=== PATIENT | female | born 1935 | race Caucasian/White ===

== ENCOUNTER 2021-07-28 17:49 | Inpatient (IN) | payer MEDICARE ==
[2021-07-28] MEDS ORDERED: ACETAMINOPHEN TAB 325 MG TAB PO PRN ×2 (18:51→22:42)
[2021-07-28] MEDS ORDERED: DEXAMETHASONE SOD PHOSPHATE 10 MG/ML 1 ML VIAL IV STA (18:52)
[2021-07-28 19:22] LABS: Basophils # (A) 0.1 k/uL (0-0.2); Basophils % (A) 1 %; Eosinophils # (A) 0.2 k/uL (0-0.7); Eosinophils % (A) 2 %; HCT 42.1 % (34.0-46.0); HGB 13.4 gm/dL (11.4-16.0); Lymphocytes # (A) 1.5 k/uL (1.0-4.8); Lymphocytes % (A) 21 %; MCH 29.5 pg (25.0-35.0); MCHC 31.9 g/dL (31.0-37.0); MCV 92.3 fL (80.0-100.0); Monocytes # (A) 0.8 k/uL (0-1.0); Monocytes % (A) 11 %; Neutrophils # (A) 4.5 k/uL (1.3-7.7); Neutrophils % (A) 63 %; Platelet Count 268 k/uL (150-450); RBC 4.56 m/uL (3.80-5.40); RDW 13.3 % (11.5-15.5); WBC 7.1 k/uL (3.8-10.6)
[2021-07-28 19:35] LABS: Partial Thromboplastin Time 26.6 sec (22.0-30.0); Prothrombin Time 11.1 sec (9.0-12.0)
[2021-07-28 19:36] LABS: ALT 15 U/L (4-34); AST 32 U/L (14-36); African American GFR (CKD) >90 (>60 ml/min/1.73 sqM); Albumin 3.2 g/dL (3.5-5.0); Alkaline Phosphatase 92 U/L (38-126); Anion Gap 6 mmol/L; Blood Urea Nitrogen 20 mg/dL (7-17); C Reactive Protein 3.3 mg/dL (<1.0); Calcium 8.8 mg/dL (8.4-10.2); Carbon Dioxide 27 mmol/L (22-30); Chloride 98 mmol/L (98-107); Glucose 107 mg/dL (74-99); LDH 449 U/L (313-618); Magnesium 1.8 mg/dL (1.6-2.3); Non-African American GFR(CKD) 81 (>60 ml/min/1.73 sqM); Potassium 4.3 mmol/L (3.5-5.1); Sodium 131 mmol/L (137-145); Total Bilirubin 0.4 mg/dL (0.2-1.3); Total Protein 6.1 g/dL (6.3-8.2)
--- NOTE | 2021-07-28 19:41 | XR ---
EXAMINATION TYPE: XR chest 1V portable DATE OF EXAM: 07/28/2021 COMPARISON: NONE HISTORY: Shortness of breath TECHNIQUE: Single frontal view of the chest is obtained. FINDINGS: Hyperinflation suggests COPD. There is no evidence of pneumothorax. Minimal left-sided ple ural thickening or effusion. Biapical pleural thickening. Nodularity in the right lung with the large st nodule measuring 8 mm. Slightly coarsened interstitium. Diffuse osteopenia. IMPRESSION: COPD with 8 mm right upper lobe pulmonary nodule. 2. Slightly coarsened interstitium may represent chronic interstitial lung disease. Could not exclude an interstitial pneumonitis.
--- NOTE | 2021-07-28 20:27 | CT ---
EXAMINATION TYPE: CT chest angio for PE DATE OF EXAM: 07/28/2021 COMPARISON: None HISTORY: ELEVATED D-DIMER, COVID POSITIVE CT DLP: 286.2 mGycm Automated exposure control for dose reduction was used. CONTRAST: CT Chest for pulmonary embolism performed with with IV Contrast, patient injected with 100 mL of Isov ue 370. FINDINGS: LUNGS: Biapical pleural thickening. Bilateral pleural-based thickening. Motion artifact limits the ex am. 3 mm nodule right upper lobe posteriorly image 50. Subpleural 2 mm nodule left upper lobe additio nal areas of subpleural nodularity seen bilaterally subsegmental areas of consolidation are noted lar lyndsey nodule seen in the superior segment right lower lobe measuring 1 cm with adjacent 6 mm nodule. Ad ditional old micronodular pattern seen in the anterior segments of bilateral upper lobes. Underlying COPD noted. No pleural effusion or pneumothorax. Additional multiple 5 mm less pulmonary nodules note d. MEDIASTINUM: Aorta of normal caliber. Coronary artery calcification noted. Central pulmonary arteries enhance normally. Within a right upper lobe branch on axial image #62, 61 and 60 there is a nonenhan cing segment of the right upper lobe pulmonary artery suspicious for a small pulmonary embolism. Smal l pericardial effusion noted. OTHER: The level degenerative disc disease with a severe compression fracture lower thoracic spine r esulting in approximate 10% retropulsion. Moderate-sized hiatal hernia. IMPRESSION: 1. There is a nonenhancing right upper lobe pulmonary artery distal branch segment suspicious for sma ll pulmonary embolism. 2. COPD with multiple pulmonary nodules recommend short-term follow-up PET scan. 3. Chronic appearing severe compression fracture lower thoracic spine with approximately 10% retropul shreyas. Short-term follow-up MRI could be obtained.
--- NOTE | 2021-07-28 20:29 | XR ---
EXAMINATION TYPE: XR ankle complete LT DATE OF EXAM: 07/28/2021 COMPARISON: NONE HISTORY: Pain FINDINGS: Three views of the ankle demonstrate the ankle mortise to be intact and symmetric. The joint spaces are preserved. The osseous structures are intact. Views osteopenia with diffuse subcutaneous edema. No definite destructive changes. IMPRESSION: 1. Soft tissue edema with possible ulceration adjacent calcaneus. No definite destructive changes..
--- NOTE | 2021-07-28 20:30 | XR ---
EXAMINATION TYPE: XR foot complete LT DATE OF EXAM: 07/28/2021 COMPARISON: NONE HISTORY: Soft tissue edema and alternatives TECHNIQUE: Three views are submitted. FINDINGS: The osseous structures are intact. There is no acute fracture or dislocation. Diffuse osteopenia. Hammertoe deformities and arthropathy of the DIP joints of all digits. Soft tissue edema and ulcerati on adjacent to the calcaneus posteriorly. No definite destructive changes. IMPRESSION: 1. Soft tissue swelling and subcutaneous ulceration adjacent to the calcaneus with no diagnostic evid ence of osteomyelitis.
[2021-07-28] MEDS ORDERED: cefTRIAXone IN SWFI 1,000 MG/10 ML SYRINGE IVP STA (20:47)
--- NOTE | 2021-07-28 22:27 | ED ---
General Adult HPI - General Chief complaint: Shortness of Breath Stated complaint: Covid+ Time Seen by Provider: 07/28/21 18:16 Source: patient, EMS, RN notes reviewed, old records reviewed Mode of arrival: EMS - History of Present Illness Initial comments: She was evaluated when she was placed in the room. Patient is an 86-year-old female with past medical history remarkable for asthma, dementia, anemia, left heel pressure ulcer, recent right artificial hip joint surgery. Patient is also currently being treated for a DVT per daughter on Alexsander who presents to the emergency department after being brought in by EMS after being found to be Covid positive and concern for worsening infection. Patient is a limited historian secondary to her chronic dementia, which she is at baseline per EMS. Baseline she is alert and oriented times one to 2. She is complaining of a cough, but denies any chest pain, abdominal pain. She endorses mild shortness of breath. She is not on oxygen at the nursing facility. She is endorsing left heel pain at the site of her ulcer. She denies any nausea or vomiting or abdominal pain. She has no other acute complaints at this time. Per patient's daughter, she was fully vaccinated for COVID-19. - Related Data Home Medications Medication Instructions Recorded Confirmed Acetaminophen [Tylenol] 650 mg PO Q4H PRN 07/28/21 07/28/21 Albuterol Nebulized [Ventolin 2.5 mg INHALATION RT-Q4H PRN 07/28/21 07/28/21 Nebulized] Albuterol Sulfate [Ventolin HFA] 2 puff INHALATION RT-Q8H PRN 07/28/21 07/28/21 Apixaban [Eliquis] 10 mg PO BID 07/28/21 07/28/21 Sennosides [Senna] 8.6 mg PO BID 07/28/21 07/28/21 Allergies Allergy/AdvReac Type Severity Reaction Status Date / Time No Known Allergies Allergy Verified 07/28/21 22:06 Review of Systems ROS Statement: Those systems with pertinent positive or pertinent negative responses have been documented in the HPI. Review of Systems: CONST: Denies fever EYES: Denies blurry vision ENT: Denies nasal congestion C/V: Denies Chest pain RESP: Endorses cough, shortness of breath GI: Denies abdominal pain : Denies dysuria SKIN: Denies rash. MSK: Denies joint pain. NEURO: Denies headache ROS Other: All systems not noted in ROS Statement are negative. Past Medical History Past Medical History: Asthma Additional Past Medical History / Comment(s): Anemia, constipation, Fracture left talus, Right leg PE, dementia History of Any Multi-Drug Resistant Organisms: None Reported Past Surgical History: Unable to Obtain Past Psychological History: Unable to Obtain Past Alcohol Use History: Unable to Obtain Past Drug Use History: Unable to Obtain General Exam - General Exam Comments Initial Comments: General: Appears in no acute distress. HEAD: Normal with no signs of head trauma. EYES: PERRLA, EOMI, conjunctiva normal, no discharge. ENT: Hearing grossly intact, normal oropharynx. RESPIRATORY: Crackles in bilateral lung bases without any obvious wheezes. Minimal increased work of breathing if any. Patient is hypoxic on room air, occasionally saturating 88-90%. C/V: Portable and tachycardic with regular rhythm. S1 and S2 auscultated. No peripheral edema. Peripheral pulses are 2+ intact throughout. ABD: Abd is soft, nontender, nondistended EXT: Pulses are located over the left heel. No obvious deformity. SKIN: Patient has approximate stage I to 2 decubitus ulcer located over the left heel. There is surrounding erythema concerning for cellulitis. Minimal possible purulent discharge at this time. NEURO: History of dementia. Alert and oriented times one to 2. No focal sensory strength deficits appreciated. Course Vital Signs 07/28/21 07/28/21 07/28/21 17:50 19:30 21:00 Temperature 98.2 F Pulse Rate 102 H 95 Respiratory 22 30 H 18 Rate Blood Pressure 134/70 137/80 O2 Sat by Pulse 95 95 Oximetry Medical Decision Making - Medical Decision Making Based on the patient's presentation and physical exam, I am concerned for hypoxic respiratory failure secondary to COVID-19 infection. She was placed on 2 L nasal cannula is no longer hypoxic. We will obtain COVID-19 laboratory studies as well as a cardiac workup. Due to her left heel acute this ulcer, we will obtain wound cultures as well as blood cultures and lactate. X-rays of left he'll also be obtained. Patient was in agreement this plan. She'll be symptomatically treated with Tylenol for fevers, albuterol inhaler, as well as IV Decadron. She will be placed on Rocephin over concern for cellulitis surrounding the due to his ulcer on the left heel. Patient and her daughter were in agreement this plan. EKG shows mild sinus tachycardia and chest x-ray revealed a pulmonary nodule in the right upper lobe as well as chronic lung disease. Ankle x-ray and foot x- ray showed no signs of acute osteomyelitis. Laboratory studies were remarkable for an elevated d-dimer of 0.96. She is mildly hyponatremic to 131. Troponin is negative. Covid is positive. Flu and RSV are negative. CRP is mildly elevated at 3.3. Due to the elevated d-dimer, despite the patient being on alcohol is for a DVT at this time, we will obtain a CT angiogram of the possibility of pulmonary embolism. Patient was in agreement this plan. Patient's CT angiogram revealed a possible small subsegmental PE in the right upper lobe. There are multiple pulmonary nodules present. There is also a compression fracture located in the thoracic spine which is chronic. I spoke with the patient's daughter regarding the findings. She will be admitt ed to the hospital for further monitoring. Patient's daughter was in agreement this plan.After multiple attempts to contact the patient's admitting doctor per the admissions grid, Dr. Padilla, we waited an hour and a half. Therefore patient will be admitted under sounds physician, Dr. Rojo. I spoke with Dr. Sandra over the phone who was in agreement that admission. I will consult Dr. Philippe of pulmonology and Dr. Arroyo of ID to evaluate the patient in the morning. Patient was therefore admitted to the hospital to a telemetry bed in serious condition. - Lab Data Result diagrams: 07/28/21 19:18 07/28/21 19:18 Lab Results 07/28/21 07/28/21 07/28/21 Range/Units 19:18 19:18 19:18 WBC 7.1 (3.8-10.6) k/uL RBC 4.56 (3.80-5.40) m/uL Hgb 13.4 (11.4-16.0) gm/dL Hct 42.1 (34.0-46.0) % MCV 92.3 (80.0-100.0) fL MCH 29.5 (25.0-35.0) pg MCHC 31.9 (31.0-37.0) g/dL RDW 13.3 (11.5-15.5) % Plt Count 268 (150-450) k/uL MPV 8.0 Neutrophils % 63 % Lymphocytes % 21 % Monocytes % 11 % Eosinophils % 2 % Basophils % 1 % Neutrophils # 4.5 (1.3-7.7) k/uL Lymphocytes # 1.5 (1.0-4.8) k/uL Monocytes # 0.8 (0-1.0) k/uL Eosinophils # 0.2 (0-0.7) k/uL Basophils # 0.1 (0-0.2) k/uL PT 11.1 (9.0-12.0) sec INR 1.0 (<1.2) APTT 26.6 (22.0-30.0) sec D-Dimer 0.96 H (<0.60) mg/L FEU Sodium 131 L (137-145) mmol/L Potassium 4.3 (3.5-5.1) mmol/L Chloride 98 (98-107) mmol/L Carbon Dioxide 27 (22-30) mmol/L Anion Gap 6 mmol/L BUN 20 H (7-17) mg/dL Creatinine 0.67 (0.52-1.04) mg/dL Est GFR (CKD-EPI)AfAm >90 (>60 ml/min/1.73 sqM) Est GFR (CKD-EPI)NonAf 81 (>60 ml/min/1.73 sqM) Glucose 107 H (74-99) mg/dL Plasma Lactic Acid Willie (0.7-2.0) mmol/L Calcium 8.8 (8.4-10.2) mg/dL Magnesium 1.8 (1.6-2.3) mg/dL Total Bilirubin 0.4 (0.2-1.3) mg/dL AST 32 (14-36) U/L ALT 15 (4-34) U/L Alkaline Phosphatase 92 (38-126) U/L Lactate Dehydrogenase 449 (313-618) U/L Troponin I (0.000-0.034) ng/mL C-Reactive Protein 3.3 H (<1.0) mg/dL Total Protein 6.1 L (6.3-8.2) g/dL Albumin 3.2 L (3.5-5.0) g/dL Influenza Type A (PCR) (Not Detectd) Influenza Type B (PCR) (Not Detectd) RSV (PCR) (Not Detectd) SARS-CoV-2 (PCR) (Not Detectd) 07/28/21 07/28/21 07/28/21 Range/Units 19:18 19:18 19:18 WBC (3.8-10.6) k/uL RBC (3.80-5.40) m/uL Hgb (11.4-16.0) gm/dL Hct (34.0-46.0) % MCV (80.0-100.0) fL MCH (25.0-35.0) pg MCHC (31.0-37.0) g/dL RDW (11.5-15.5) % Plt Count (150-450) k/uL MPV Neutrophils % % Lymphocytes % % Monocytes % % Eosinophils % % Basophils % % Neutrophils # (1.3-7.7) k/uL Lymphocytes # (1.0-4.8) k/uL Monocytes # (0-1.0) k/uL Eosinophils # (0-0.7) k/uL Basophils # (0-0.2) k/uL PT (9.0-12.0) sec INR (<1.2) APTT (22.0-30.0) sec D-Dimer (<0.60) mg/L FEU Sodium (137-145) mmol/L Potassium (3.5-5.1) mmol/L Chloride (98-107) mmol/L Carbon Dioxide (22-30) mmol/L Anion Gap mmol/L BUN (7-17) mg/dL Creatinine (0.52-1.04) mg/dL Est GFR (CKD-EPI)AfAm (>60 ml/min/1.73 sqM) Est GFR (CKD-EPI)NonAf (>60 ml/min/1.73 sqM) Glucose (74-99) mg/dL Plasma Lactic Acid Willie 0.9 (0.7-2.0) mmol/L Calcium (8.4-10.2) mg/dL Magnesium (1.6-2.3) mg/dL Total Bilirubin (0.2-1.3) mg/dL AST (14-36) U/L ALT (4-34) U/L Alkaline Phosphatase (38-126) U/L Lactate Dehydrogenase (313-618) U/L Troponin I <0.012 (0.000-0.034) ng/mL C-Reactive Protein (<1.0) mg/dL Total Protein (6.3-8.2) g/dL Albumin (3.5-5.0) g/dL Influenza Type A (PCR) Not Detected (Not Detectd) Influenza Type B (PCR) Not Detected (Not Detectd) RSV (PCR) Not Detected (Not Detectd) SARS-CoV-2 (PCR) Detected A (Not Detectd) - EKG Data -: EKG Interpreted by Me EKG Comments: 12-lead Electrocardiogram Interpretation Note EKG was reviewed and interpreted by myself. 12-lead ECG performed at 1822 is interpreted by me as revealing sinus tachycardia at a rate of125 beats per minute according to the machine, however I do believe it is double counting the T waves which are somewhat incised QRS complexes, and it appears to be more proximally 100 bpm.. Left axis deviation. [place] interval is 120 ms, QRS duration 74 ms, QTc is 470 ms.. There were no ST or T wave abnormalities to suggest myocardial ischemia or injury. R wave progression across the precordium was satisfactory. By my interpretation this EKG is non-diagnostic for acute ischemia. Disposition Clinical Impression: Pneumonia due to COVID-19 virus, Pulmonary nodules, Single subsegmental pulmonary embolism without acute cor pulmonale, Foot ulcer, Cellulitis, History of dementia Disposition: ADMITTED IP TO THIS HOSP Condition: Serious Referrals: Jose Montalvo DO [Primary Care Provider] - 1-2 days
[2021-07-28] MEDS ORDERED: ONDANSETRON 4 MG/2 ML VIAL IVP PRN (22:48)
--- NOTE | 2021-07-29 02:07 | P.HPIM ---
History of Present Illness H&P Date: 07/28/21 Chief Complaint: positive covid at senior care facility 86 year old female with advanced dementia, asthma, left heel pressure ulcer patient is a senior care resident , vaccinated against covid, sheis unable to provide any meaningful history due to dementia. history was provided by daughter in the ED, she reports that her mom was sent here due to concerns regarding posi tive covid infection, she has been having some cough, and shortness of breath, she is not on home oxygen. patient was recently diagnosed with DVT and currently on eliquis CTA inthe ED showed right upper lobe possible small PE, COPD changes with pulmonary nodules , and chronic compression fracture of lower thoracic vertebra blood work unremarkable , slightly elevated d-dimer COVID positive Review of Systems ROS unobtainable: due to mental status Past Medical History Past Medical History: Asthma Additional Past Medical History / Comment(s): Anemia, constipation, Fracture left talus, Right leg DVT, dementia History of Any Multi-Drug Resistant Organisms: None Reported Past Surgical History: Unable to Obtain Past Anesthesia/Blood Transfusion Reactions: No Reported Reaction Past Psychological History: Unable to Obtain Smoking Status: Never smoker Past Alcohol Use History: Unable to Obtain Past Drug Use History: Unable to Obtain - Past Family History family Family Medical History: Unable to Obtain Medications and Allergies Home Medications Medication Instructions Recorded Confirmed Type Acetaminophen [Tylenol] 650 mg PO Q4H PRN 07/28/21 07/28/21 History Albuterol Nebulized [Ventolin 2.5 mg INHALATION RT-Q4H PRN 07/28/21 07/28/21 History Nebulized] Albuterol Sulfate [Ventolin HFA] 2 puff INHALATION RT-Q8H PRN 07/28/21 07/28/21 History Apixaban [Eliquis] 10 mg PO BID 07/28/21 07/28/21 History Sennosides [Senna] 8.6 mg PO BID 07/28/21 07/28/21 History Allergies Allergy/AdvReac Type Severity Reaction Status Date / Time No Known Allergies Allergy Verified 07/28/21 22:06 Physical Exam Vitals: Vital Signs Temp Pulse Pulse Resp BP BP Pulse Ox 07/29/21 00:44 98.5 F 95 18 150/75 94 L 07/28/21 23:39 95 18 139/89 98 07/28/21 21:00 95 18 137/80 95 07/28/21 19:30 30 H 07/28/21 17:50 98.2 F 102 H 22 134/70 95 Intake and Output 07/28/21 07/28/21 07/29/21 14:59 22:59 06:59 Other: Voiding Method Diaper Weight 68.039 kg 68.039 kg Constitutional: No acute distress, laying comfortably in bed, does not follow commands, but alert and awake , does not answer questions Eyes: Anicteric sclerae, moist conjunctiva, Pupils equal round reactive to light ENMT: NC/AT Neck: Supple, no masses, or JVD No carotid bruits No thyromegaly Lungs: Clear to auscultation with harsh vesicular breathing Clear to percussion Normal respiratory effort, no accessory muscle use Cardiovascular: Heart regular in rate and rhythm, No murmurs, gallops, or rubs No peripheral edema Abdominal: Soft Nontender, no guarding, rebound or rigidity Abdomen moving with respiration Normoactive bowel sounds No hepatomegaly, No splenomegaly No palpable mass No abdominal wall hernia noted Skin: Normal temperature, tone, texture, turgor No induration No subcutaneous nodules No rash, lesions left heal ulcer Extremities: No digital cyanosis No clubbing Pedal pulses intact and symmetrical Radial pulses intact and symmetrical No calf tenderness Psychiatric: Alert and does not answer any of my questions Neuro did not follow commands, but makes brief eye contact, she is looking around and not following commands but is moving purposefully Lymphatics: no palpable cervical or supraclavicular , or inguinal lymph nodes Results CBC & Chem 7: 07/28/21 19:18 07/28/21 19:18 Labs: Abnormal Lab Results - Last 24 Hours (Table) 07/28/21 07/28/21 07/28/21 Range/Units 19:18 19:18 19:18 D-Dimer 0.96 H (<0.60) mg/L FEU Sodium 131 L (137-145) mmol/L BUN 20 H (7-17) mg/dL Glucose 107 H (74-99) mg/dL C-Reactive Protein 3.3 H (<1.0) mg/dL Total Protein 6.1 L (6.3-8.2) g/dL Albumin 3.2 L (3.5-5.0) g/dL SARS-CoV-2 (PCR) Detected A (Not Detectd) Thrombosis Risk Factor Assmnt - Choose All That Apply Each Factor Represents 1 point: Serious lung disease incl. pneumonia (< 1month) Each Risk Factor Represents 3 Points: Age 75 years or older Thrombosis Risk Factor Assessment Total Risk Factor Score: 4 Thrombosis Risk Factor Assessment Level: Moderate Risk Assessment and Plan Assessment: acute covid pneumonitis Asthma compensated supportive care breathing treatments as needed patient was started on steroids in the ED, unclear if she was hypoxic or no, currently on 2 L NC with oxygen sat 94% symptomatic control of fever, pain , cough patient vaccinated against covid check trops, d dimer, CRP, LDH , ferritin , procalcitonin for prognostic evaluation recent diagnosis of DVT , on eliquis incidental finding of small PE right upper lobe artery , continue with eliquis for now left heel ulcer , on rocephine follow up cultures incidental findings of pulmonary nodule pulmonary consult and OP follow up Its unclear when she was diagnosed with DVT, but currently she is still on Eliquis 10mg BID , which should only be used the first week. need to verify with family when this was started to adjust dosing full code DVT PPX, patient currently on full dose eliquis for recent diagnosis of DVT anticipated length of stay > 2 midnights
[2021-07-29 06:50] LABS: Glucose,Whole Blood 132 mg/dL (75-99)
[2021-07-29] MEDS: INSULIN ASPART (NovoLOG) 100 UNIT/ML VIAL SQ SCH ×4 (06:53→20:25)
[2021-07-29] MEDS: ALBUTEROL HFA INHALER INHALATION PRN ×2 (07:41→11:33)
[2021-07-29 07:44] LABS: Basophils % (A) 0 %; Eosinophils % (A) 0 %; HCT 43.3 % (34.0-46.0); HGB 13.6 gm/dL (11.4-16.0); Lymphocytes # (A) 0.8 k/uL (1.0-4.8); Lymphocytes % (A) 23 %; MCH 29.6 pg (25.0-35.0); MCHC 31.5 g/dL (31.0-37.0); Mean Platelet Volume 7.8; Monocytes # (A) 0.1 k/uL (0-1.0); Monocytes % (A) 4 %; Neutrophils # (A) 2.3 k/uL (1.3-7.7); Neutrophils % (A) 72 %; Platelet Count 258 k/uL (150-450); RBC 4.61 m/uL (3.80-5.40); RDW 13.4 % (11.5-15.5); WBC 3.2 k/uL (3.8-10.6)
[2021-07-29 08:01] LABS: Prothrombin Time 10.5 sec (9.0-12.0)
[2021-07-29 08:11] LABS: ALT 15 U/L (4-34); AST 26 U/L (14-36); African American GFR (CKD) >90 (>60 ml/min/1.73 sqM); Alkaline Phosphatase 79 U/L (38-126); Anion Gap 6 mmol/L; Blood Urea Nitrogen 17 mg/dL (7-17); Calcium 9.2 mg/dL (8.4-10.2); Carbon Dioxide 29 mmol/L (22-30); Chloride 102 mmol/L (98-107); Glucose 139 mg/dL (74-99); LDH 426 U/L (313-618); Non-African American GFR(CKD) 80 (>60 ml/min/1.73 sqM); Potassium 4.7 mmol/L (3.5-5.1); Sodium 137 mmol/L (137-145); Total Bilirubin 0.3 mg/dL (0.2-1.3)
[2021-07-29] MEDS ORDERED: DEXAMETHASONE SOD PHOSPHATE 10 MG/ML 1 ML VIAL IV SCH (09:00)
[2021-07-29 09:17] LABS: C Reactive Protein 3.6 mg/dL (<1.0)
[2021-07-29] MEDS: APIXABAN 5 MG TAB PO SCH ×2 (09:35→20:23)
[2021-07-29] MEDS: SENNOSIDES 8.6 MG TAB PO SCH ×3 (09:36→20:25)
[2021-07-29 11:43] LABS: Glucose,Whole Blood 142 mg/dL (75-99)
--- NOTE | 2021-07-29 12:43 | P.CNPUL ---
History of Present Illness Consult date: 07/29/21 Requesting physician: Vitaly Rojo Reason for consult: dyspnea, hypoxemia Chief complaint: CoVID positive History of present illness: This is an 86-year-old female patient who follows with Dr. Montalvo as her primary care provider. She resides in a local extended care facility and was found to be CoVID positive yesterday. She has been fully vaccinated. Not normally on oxygen. She was brought in due to her positive testing concerns regarding worsening infection. She does have chronic dementia is a poor historian. Chest is a history of asthma, anemia, left heel pressure ulcer, recent hip surgery. Her recent DVT. Anticoagulated with Eliquis Chest x-ray reveals evidence of COPD with some chronic interstitial lung disease possible. 8 mm right upper lobe pulmonary nodule. CT angiogram reveals a distal subsegmental suspicious small PE. There is evidence of COPD with multiple pu lmonary nodules. Chronic-appearing severe compression fraction of the lower thoracic spine. X-ray of the left heel reveals soft tissue swelling and subcutaneous ulceration adjacent to the calcaneus no evidence of osteomyelitis. White count 3.2. Hemoglobin 13.6. Lymphocytes 0.8. D-dimer 0.98. Sodium 137. Potassium 4.7. Creatinine 0.69. Glucose 139. COVID-19 screen by PCR positive. Influenza screen negative. She's been initiated on ceftriaxone. Anticoagulated with Eliquis. Review of Systems ROS unobtainable: due to mental status Past Medical History Past Medical History: Asthma Additional Past Medical History / Comment(s): Anemia, constipation, Fracture left talus, Right leg DVT, dementia History of Any Multi-Drug Resistant Organisms: None Reported Past Surgical History: Unable to Obtain Past Anesthesia/Blood Transfusion Reactions: No Reported Reaction Past Psychological History: Unable to Obtain Smoking Status: Never smoker Past Alcohol Use History: Unable to Obtain Past Drug Use History: Unable to Obtain - Past Family History family Family Medical History: Unable to Obtain Additional Family Medical History / Comment(s): Unable to obtain any family history due to the patient's altered mental status, dementia. No family members present. Medications and Allergies Home Medications Medication Instructions Recorded Confirmed Type Acetaminophen [Tylenol] 650 mg PO Q4H PRN 07/28/21 07/28/21 History Albuterol Nebulized [Ventolin 2.5 mg INHALATION RT-Q4H PRN 07/28/21 07/28/21 History Nebulized] Albuterol Sulfate [Ventolin HFA] 2 puff INHALATION RT-Q8H PRN 07/28/21 07/28/21 History Apixaban [Eliquis] 10 mg PO BID 07/28/21 07/28/21 History Sennosides [Senna] 8.6 mg PO BID 07/28/21 07/28/21 History Allergies Allergy/AdvReac Type Severity Reaction Status Date / Time No Known Allergies Allergy Verified 07/28/21 22:06 Physical Exam Vitals: Vital Signs Temp Pulse Pulse Resp BP BP Pulse Ox 07/29/21 12:00 98.2 F 89 20 133/72 92 L 07/29/21 08:00 99.1 F 96 18 119/62 94 L 07/29/21 07:45 98 07/29/21 04:00 80 20 123/74 98 07/29/21 00:44 98.5 F 95 18 150/75 94 L 07/28/21 23:39 95 18 139/89 98 07/28/21 21:00 95 18 137/80 95 07/28/21 19:30 30 H 07/28/21 17:50 98.2 F 102 H 22 134/70 95 Intake and Output 07/28/21 07/29/21 07/29/21 22:59 06:59 14:59 Intake Total 0 Balance 0 Intake: Oral 0 Other: Voiding Method Diaper External Catheter # Voids 1 Weight 68.039 kg 67.5 kg 67.5 kg GENERAL EXAM: Alert, 86-year-old female patient, on 3 L nasal cannula, comfortable in no apparent distress. HEAD: Normocephalic. EYES: Normal reaction of pupils, equal size. NOSE: Clear with pink turbinates. THROAT: No erythema or exudates. NECK: No masses, no JVD. CHEST: No chest wall deformity. LUNGS: Equal air entry with coarse crackles in the posterior bases. CVS: S1 and S2 normal with no audible murmur, regular rhythm. ABDOMEN: No hepatosplenomegaly, normal bowel sounds, no guarding or rigidity. SPINE: No scoliosis or deformity SKIN: No rashes CENTRAL NERVOUS SYSTEM: Unable to fully evaluate the patient due to dementia, tone is normal in all 4 extremities. EXTREMITIES: There is no peripheral edema. No clubbing, no cyanosis. Peripheral pulses are intact. Results - Laboratory Findings CBC and BMP: 07/29/21 07:22 07/29/21 07:22 PT/INR, D-dimer PT 10.5 sec (9.0-12.0) 07/29/21 07:22 INR 1.0 (<1.2) 07/29/21 07:22 D-Dimer 0.98 mg/L FEU (<0.60) H 07/29/21 07:22 Abnormal lab findings: Abnormal Labs 07/28/21 07/28/21 07/28/21 19:18 19:18 19:18 WBC Lymphocytes # D-Dimer 0.96 H Sodium 131 L BUN 20 H Glucose 107 H POC Glucose (mg/dL) C-Reactive Protein 3.3 H Total Protein 6.1 L Albumin 3.2 L SARS-CoV-2 (PCR) Detected A 07/29/21 07/29/21 07/29/21 06:48 07:22 07:22 WBC 3.2 L Lymphocytes # 0.8 L D-Dimer 0.98 H Sodium BUN Glucose POC Glucose (mg/dL) 132 H C-Reactive Protein Total Protein Albumin SARS-CoV-2 (PCR) 07/29/21 07/29/21 07:22 11:41 WBC Lymphocytes # D-Dimer Sodium BUN Glucose 139 H POC Glucose (mg/dL) 142 H C-Reactive Protein 3.6 H Total Protein 6.0 L Albumin 3.0 L SARS-CoV-2 (PCR) - Diagnostic Findings Chest x-ray: image reviewed CT scan - chest: image reviewed Assessment and Plan Assessment: 1 Acute hypoxemic respiratory failure secondary to acute COVID-19 pneumonia the patient apparently is fully vaccinated. Resides in an [facility]. 2 Recent history of DVT, on Eliquis in the outpatient setting. Possible small PE on CTA 3 Left heel ulcer on Rocephin 4 Dementia, very poor historian 5 History of recent hip surgery 6 Asthma 7 History of anemia Plan: The patient was seen and evaluated by Dr. Philippe Chest x-ray, CAT scan and labs reviewed We will initiate Decadron, vitamin supplements,bronchodilators Continue Eliquis Titrate the FiO2 as tolerated We will continue to follow and make further recommendations based on her clinica l status I, the cosigning physician, performed a history & physical examination of the patient. Lungs sounds with bibasilar crackles. Maintaining good O2 saturations in the 90s on 3 L/m per nasal cannula. I discussed the assessment and plan of care with my nurse practitioner, Gabi Coronel. I attest to the above consultation as dictated by her. Time with Patient: Greater than 30
[2021-07-29] MEDS: CHOLECALCIFEROL 25 MCG (1000 IU) TABLET PO SCH (14:21)
[2021-07-29] MEDS: ASCORBIC ACID 500 MG TAB PO SCH ×2 (14:21→20:23)
--- NOTE | 2021-07-29 14:24 | P.PN ---
Progress Note - Text Progress Note Date: 07/29/21 Presenting complaint: Cough short of breath Interval history: 86-year-old patient of Dr. Montalvo. At the baseline able to feed herself. Dementia. Able tonsil simple questions. Normally uses a wheelchair[facility] Ad[facility] with COVID 19 pneumonitis, possible hypoxia. 07/29/2021: Reclining in bed. Congested cough. Some shortness of breath. Decreased appetite. Review of systems: Was done for constitutional, cardiovascular, GI, pulmonary. relevant finding as above Active Medications Acetaminophen (Acetaminophen Tab 325 Mg Tab) 650 mg PO Q4H PRN PRN Reason: Pain or Fever > 100.5 Albuterol Sulfate (Albuterol Hfa Inhaler) 2 puff INHALATION RT-Q6H PRN PRN Reason: Shortness Of Breath Or Wheezing Last Admin: 07/29/21 11:33 Dose: 2 puff Documented by: Apixaban (Apixaban 5 Mg Tab) 10 mg PO BID [facility]; Protocol Last Admin: 07/29/21 09:35 Dose: 10 mg Documented by: Ascorbic Acid (Ascorbic Acid 500 Mg Tab) 500 mg PO BID [facility] Cholecalciferol (Cholecalciferol 25 Mcg (1000 Iu) Tablet) 25 mcg PO DAILY [facility] Dexamethasone Sodium Phosphate (Dexamethasone Sod Phosphate 10 Mg/Ml 1 Ml Vial) 6 mg IV DAILY [facility] Ceftriaxone Sodium 1 gm/ (Sodium Chloride) 50 mls @ 100 mls/hr IVPB Q24HR [facility] Last Admin: 07/29/21 09:36 Dose: 100 mls/hr Documented by: Insulin Aspart (Insulin Aspart (Novolog) 100 Unit/Ml Vial) 0 unit SQ ACHS [facility]; Protocol Last Admin: 07/29/21 06:53 Dose: Not Given Documented by: Ondansetron HCl (Ondansetron 4 Mg/2 Ml Vial) 4 mg IVP Q8HR PRN PRN Reason: Nausea And Vomiting Senna (Sennosides 8.6 Mg Tab) 8.6 mg PO BID [facility] Last Admin: 07/29/21 09:36 Dose: 8.6 mg Documented by: Zinc Sulfate (Zinc Sulfate 220 Mg Cap) 220 mg PO DAILY DOMINICK On examination: VITAL SIGNS: [98.2, 89, 20, 133.72, 92% on 2 L] GENERAL APPEARANCE: Reclining in bed, tired, coughing RESPIRATORY: Respiratory effort increased. PSYCHIATRY: Able to answer simple questions NEUROLOGICAL: No facial asymmetry. Moving all 4 limbs. Rest of exam as per nursing and pulmonary INVESTIGATIONS, reviewed in the clinical context: WBC 3.2 hemoglobin 13.6 platelets 258 d-dimer 0.98 sodium 137 potassium 4.7 creatinine 0.69 albumin 3.0 Influenza type A, type B, RSV: Not detected SARS-CoV-2 [PCR]: Detected CT chest: COPD with multiple pulmonary nodules. Chronic appearing severe compression fracture lower thoracic spine. Suspicion for a distal segment small PE. Assessment and plan: -Acute COVID 19 pneumonitis in a patient who was vaccinated Ventolin when necessary, IV Decadron 6 mg, zinc -Acute hypoxic respiratory failure from COVID 19 pneumonitis Oxygen supplementation -Major cognitive impairment from late onset Alzheimer's dementia -Chronic medical debility Uses a wheelchair at baseline -Primary osteoarthritis multiple joints bilateral Use pain medications as needed -Mild protein calorie malnutrition from decreased oral intake Add Ensure -Acute asthma exacerbation Ventolin inhaler. IV dexamethasone -DVT right lower extremity 1 eliquis
[2021-07-29 15:48] LABS: Appearance,Urine Clear (Clear); Bilirubin,Urine Negative (Negative); Blood,Urine Trace (Negative); Color,Urine Yellow; Glucose,Urine (UA) Negative (Negative); Ketones,Urine Negative (Negative); Leukocyte Esterase,Urine Large (Negative); Mucus,Urine Rare /hpf; Nitrite,Urine Negative (Negative); PH, Urine 5.5 (5.0-8.0); Protein,Urine Negative (Negative); RBC,Urine 4 /hpf (0-5); Specific Gravity,Urine 1.032 (1.001-1.035); Squamous Epithelial Cell,Urine 1 /hpf (0-4); Urobilinogen,Urine <2.0 mg/dL (<2.0); WBC,Urine 43 /hpf (0-5)
[2021-07-29 16:22] LABS: Glucose,Whole Blood 111 mg/dL (75-99)
[2021-07-29 20:25] LABS: Glucose,Whole Blood 120 mg/dL (75-99)
--- NOTE | 2021-07-30 00:08 | P.CONS ---
History of Present Illness - Reason for Consult Consult date: 07/29/21 covid 19 pneumonia Requesting physician: Jan Padilla - Chief Complaint shortness of breath x few days - History of Present Illness History of present illness : Patient is 86-year-old female with a past medical history patient for dementia asthma retirement resident and the patient was brought to the ER yesterday for afternoon after the patient was noticed to have a positive Covid test with worsening of her respiratory symptoms patient on presentation to the hospital was afebrile and no fever has been recorded subsequently patient was initially not hypoxic subsequent requiring supplemental oxygen currently at 2 L nasal cannula patient did have a mild l eukopenia as well as lymphopenia kidney function has been normal D-dimer was mildly elevated liver enzymes are normal CRP is 3.6 (is 0.11 remains mildly positive ngo PCR was positive patient did have a chest x-ray COPD with 8 mm right upper lobe lung nodule patient did have a CT angiogram of the chest concern for small PE chronic appearing compression deformities of lower thoracic spine patient has been admitted to hospital infectious he was consulted for Corynebacterium pneumonia most information has been obtained from review the chart talking nursing staff the patient has significant elevated good historian Review of system: Positive point has been mentioned in HPI complete review could not be obtained because of underlying mental status Past medical history : Reviewed, documented below Past surgical history : Reviewed, documented below Social history: Reviewed, documented below Medications: Reviewed, as documented below EXAMINATION: Vital sigans= Reviewed and documented below GENERAL DESCRIPTION: Elderly female lying in bed, no distress. No tachypnea or accessory muscle of respiration use. HEENT: Shows Pallor , no scleral icterus. Oral mucous membrane is dry. NECK: Trachea central, no thyromegaly. LUNGS: Unlabored breathing. Decrease intensity of breath sounds. No wheeze or crackle. HEART: S1, S2, regular rate and rhythm. ABDOMEN: Soft, no tenderness , guarding or rigidity EXTREMITIES: No edema of feet. SKIN: No rash, no masses palpable. NEUROLOGICAL: The patient is awake, alert, oriented x1, mood and affect normal. LABS AND RADIOLOGY: Reviewed results see below Assessment : Patient presented to hospital with worsening respiratory symptoms and this patient was diagnosed with a COVID-19 has a local retirement patient to have underlying dementia and elevated good historian however she was noticed to be breathing comfortably in no respiratory distress and only requiring 2 L nasal cannula possible mild COVID-19 infection in this patient did not show significant groundglass opacity on the CT angiogram and some of her symptoms could be related to the small PE that was seen on the CT angiogram 2-positive UA and culture for possible symptomatic urinary tract infection not entirely excluded Plan: 1-patient to continue with Eliquis dexamethasone zinc and ascorbic acid, check COVID-19 antibodies 2-Rocephin 1 g daily 3-gentle IV fluid We will follow on clinical condition and cultures to further adjust medication if needed Thank you for this consultation we will follow the patient along with you Past Medical History Past Medical History: Asthma Additional Past Medical History / Comment(s): Anemia, constipation, Fracture left talus, Right leg DVT, dementia History of Any Multi-Drug Resistant Organisms: None Reported Past Surgical History: Unable to Obtain Past Anesthesia/Blood Transfusion Reactions: No Reported Reaction Past Psychological History: Unable to Obtain Smoking Status: Never smoker Past Alcohol Use History: Unable to Obtain Past Drug Use History: Unable to Obtain - Past Family History family Family Medical History: Unable to Obtain Additional Family Medical History / Comment(s): Unable to obtain any family history due to the patient's altered mental status, dementia. No family members present. Medications and Allergies Home Medications Medication Instructions Recorded Confirmed Type Acetaminophen [Tylenol] 650 mg PO Q4H PRN 07/28/21 07/28/21 History Albuterol Nebulized [Ventolin 2.5 mg INHALATION RT-Q4H PRN 07/28/21 07/28/21 History Nebulized] Albuterol Sulfate [Ventolin HFA] 2 puff INHALATION RT-Q8H PRN 07/28/21 07/28/21 History Apixaban [Eliquis] 10 mg PO BID 07/28/21 07/28/21 History Sennosides [Senna] 8.6 mg PO BID 07/28/21 07/28/21 History Allergies Allergy/AdvReac Type Severity Reaction Status Date / Time No Known Allergies Allergy Verified 07/28/21 22:06 Physical Exam Vitals: Vital Signs Temp Pulse Pulse Resp BP BP Pulse Ox 07/29/21 20:00 97.5 F L 95 22 114/67 95 07/29/21 16:00 98.1 F 95 28 H 116/58 94 L 07/29/21 12:00 98.2 F 89 20 133/72 92 L 07/29/21 08:00 99.1 F 96 18 119/62 94 L 07/29/21 07:45 98 07/29/21 04:00 80 20 123/74 98 07/29/21 00:44 98.5 F 95 18 150/75 94 L 07/28/21 23:39 95 18 139/89 98 Intake and Output 07/29/21 07/29/21 07/29/21 06:59 14:59 22:59 Intake Total 180 360 Output Total 200 Balance 180 160 Intake: Oral 180 360 Output: Urine 200 Other: Voiding Method Diaper Indwelling Catheter Indwelling Catheter External Catheter # Voids 1 Weight 67.5 kg 67.5 kg Results CBC & Chem 7: 07/29/21 07:22 07/29/21 07:22 Labs: Abnormal Lab Results - Last 24 Hours (Table) 07/28/21 07/28/21 07/29/21 Range/Units 15:31 19:18 06:48 WBC (3.8-10.6) k/uL Lymphocytes # (1.0-4.8) k/uL D-Dimer (<0.60) mg/L FEU Glucose (74-99) mg/dL POC Glucose (mg/dL) 132 H (75-99) mg/dL C-Reactive Protein (<1.0) mg/dL Total Protein (6.3-8.2) g/dL Albumin (3.5-5.0) g/dL Procalcitonin 0.11 H (0.02-0.09) ng/mL Urine Blood Trace H (Negative) Ur Leukocyte Esterase Large H (Negative) Urine WBC 43 H (0-5) /hpf Urine Mucus Rare H (None) /hpf 07/29/21 07/29/21 07/29/21 Range/Units 07:22 07:22 07:22 WBC 3.2 L (3.8-10.6) k/uL Lymphocytes # 0.8 L (1.0-4.8) k/uL D-Dimer 0.98 H (<0.60) mg/L FEU Glucose 139 H (74-99) mg/dL POC Glucose (mg/dL) (75-99) mg/dL C-Reactive Protein 3.6 H (<1.0) mg/dL Total Protein 6.0 L (6.3-8.2) g/dL Albumin 3.0 L (3.5-5.0) g/dL Procalcitonin (0.02-0.09) ng/mL Urine Blood (Negative) Ur Leukocyte Esterase (Negative) Urine WBC (0-5) /hpf Urine Mucus (None) /hpf 07/29/21 07/29/21 07/29/21 Range/Units 11:41 16:20 20:20 WBC (3.8-10.6) k/uL Lymphocytes # (1.0-4.8) k/uL D-Dimer (<0.60) mg/L FEU Glucose (74-99) mg/dL POC Glucose (mg/dL) 142 H 111 H 120 H (75-99) mg/dL C-Reactive Protein (<1.0) mg/dL Total Protein (6.3-8.2) g/dL Albumin (3.5-5.0) g/dL Procalcitonin (0.02-0.09) ng/mL Urine Blood (Negative) Ur Leukocyte Esterase (Negative) Urine WBC (0-5) /hpf Urine Mucus (None) /hpf Microbiology - Last 24 Hours (Table) 07/28/21 19:25 Blood Culture - Preliminary Blood No Growth after 24 hours 07/28/21 19:18 Blood Culture - Preliminary Blood No Growth after 24 hours 07/28/21 20:59 Anaerobic Culture - Preliminary Ankle - Left 07/28/21 20:59 Wound Culture - Preliminary Ankle - Left
[2021-07-30 06:39] LABS: Glucose,Whole Blood 105 mg/dL (75-99)
[2021-07-30] MEDS: INSULIN ASPART (NovoLOG) 100 UNIT/ML VIAL SQ SCH ×4 (06:41→21:00)
[2021-07-30] MEDS: ZINC SULFATE 220 MG CAP PO SCH (08:55)
[2021-07-30] MEDS: APIXABAN 5 MG TAB PO SCH ×2 (08:55→20:59)
[2021-07-30] MEDS: ASCORBIC ACID 500 MG TAB PO SCH ×2 (08:55→20:59)
[2021-07-30] MEDS: CHOLECALCIFEROL 25 MCG (1000 IU) TABLET PO SCH (08:55)
[2021-07-30] MEDS: SENNOSIDES 8.6 MG TAB PO SCH ×2 (08:55→20:59)
[2021-07-30] MEDS ORDERED: DEXAMETHASONE SOD PHOSPHATE 10 MG/ML 1 ML VIAL IV SCH (09:00)
--- NOTE | 2021-07-30 12:00 | P.PN ---
Subjective Progress Note Date: 07/30/21 Principal diagnosis: COVID-19 infection This is an 86-year-old female patient who follows with Dr. Montalvo as her primary care provider. She resides in a local extended care facility and was found to be CoVID positive yesterday. She has been fully vaccinated. Not normally on oxygen. She was brought in due to her positive testing concerns regarding worsening infection. She does have chronic dementia is a poor historian. Chest is a history of asthma, anemia, left heel pressure ulcer, recent hip surgery. Her recent DVT. Anticoagulated with Eliquis Chest x-ray reveals evidence of COPD with some chronic interstitial lung disease possible. 8 mm right upper lobe pulmonary nodule. CT angiogram reveals a distal subsegmental suspicious small PE. There is evidence of COPD with multiple pulmonary nodules. Chronic-appearing severe compression fraction of the lower thoracic spine. X-ray of the left heel reveals soft tissue swelling and subcutaneous ulceration adjacent to the calcaneus no evidence of osteomyelitis. White count 3.2. Hemoglobin 13.6. Lymphocytes 0.8. D-dimer 0.98. Sodium 137. Potassium 4.7. Creatinine 0.69. Glucose 139. COVID-19 screen by PCR positive. Influenza screen negative. She's been initiated on ceftriaxone. Anticoagulated with Eliquis. The patient is seen today 07/30/2021 in follow-up. She is currently sitting up in a chair at the bedside. Awake and alert in no acute distress. Disoriented to place and time. She is maintaining O2 saturations in the 90s on 2 L/m per nasal cannula. Room air oxygenation 88%. She's afebrile. Hemodynamically stable. Glucose 105. She remains anticoagulated with Eliquis. Remains on IV Decadron. Vitamin supplements. Bronchodilators. Objective - Vital Signs Vital signs: Vital Signs Temp 98.3 F 07/30/21 08:00 Pulse 96 07/30/21 08:00 Resp 24 07/30/21 08:00 BP 97/45 07/30/21 08:00 Pulse Ox 91 L 07/30/21 08:51 Intake & Output 07/29/21 07/30/21 07/30/21 18:59 06:59 18:59 Intake Total 540 400 840 Output Total 200 1000 Balance 340 -600 840 Weight 67.5 kg Intake: Oral 540 400 840 Output: Urine 200 1000 Other: Voiding Method Indwelling Catheter Indwelling Catheter # Voids 0 # Bowel Movements 0 - Exam GENERAL EXAM: Alert, pleasant 86-year-old female patient, up in a chair, on 2 L nasal cannula, comfortable in no apparent distress. HEAD: Normocephalic. EYES: Normal reaction of pupils, equal size. NOSE: Clear with pink turbinates. THROAT: No erythema or exudates. NECK: No masses, no JVD. CHEST: No chest wall deformity. LUNGS: Equal air entry with faint crackles in the posterior bases. CVS: S1 and S2 normal with no audible murmur, regular rhythm. ABDOMEN: No hepatosplenomegaly, normal bowel sounds, no guarding or rigidity. SPINE: No scoliosis or deformity SKIN: No rashes CENTRAL NERVOUS SYSTEM: No focal deficits, tone is normal in all 4 extremities. EXTREMITIES: There is no peripheral edema. No clubbing, no cyanosis. Peripheral pulses are intact. - Labs CBC & Chem 7: 07/29/21 07:22 07/29/21 07:22 Labs: Abnormal Lab Results - Last 24 Hours (Table) 07/28/21 07/28/21 07/29/21 Range/Units 15:31 19:18 16:20 POC Glucose (mg/dL) 111 H (75-99) mg/dL Procalcitonin 0.11 H (0.02-0.09) ng/mL Urine Blood Trace H (Negative) Ur Leukocyte Esterase Large H (Negative) Urine WBC 43 H (0-5) /hpf Urine Mucus Rare H (None) /hpf 07/29/21 07/30/21 Range/Units 20:20 06:38 POC Glucose (mg/dL) 120 H 105 H (75-99) mg/dL Procalcitonin (0.02-0.09) ng/mL Urine Blood (Negative) Ur Leukocyte Esterase (Negative) Urine WBC (0-5) /hpf Urine Mucus (None) /hpf Microbiology - Last 24 Hours (Table) 07/29/21 07:22 Blood Culture - Preliminary Blood No Growth after 24 hours 07/28/21 20:59 Gram Stain - Preliminary Ankle - Left Wound Culture - Preliminary 07/28/21 15:31 Urine Culture - Preliminary Urine,Clean Catch 07/28/21 19:25 Blood Culture - Preliminary Blood No Growth after 24 hours 07/28/21 19:18 Blood Culture - Preliminary Blood No Growth after 24 hours Assessment and Plan Assessment: 1 Acute hypoxemic respiratory failure secondary to acute COVID-19 pneumonia the patient apparently is fully vaccinated. Resides in an ECF. 2 Recent history of DVT, on Eliquis in the outpatient setting. Possible small PE on CTA 3 Left heel ulcer on Rocephin 4 Dementia, very poor historian 5 History of recent hip surgery 6 Asthma 7 History of anemia Plan: The patient was seen and evaluated by Dr. Denae Lechuga from the pulmonary standpoint We will initiate Decadron, vitamin supplements,bronchodilators Continue Eliquis Titrate the FiO2 as tolerated We will continue to follow I, the cosigning physician, performed a history & physical examination of the patient. Lungs sounds with bibasilar crackles. Maintaining good O2 saturations in the 90s on 2 L/m per nasal cannula. I discussed the assessment and plan of care with my nurse practitioner, Gabi Cornoel. I attest to the above note as dictated by her.
[2021-07-30 12:01] LABS: Glucose,Whole Blood 126 mg/dL (75-99)
--- NOTE | 2021-07-30 16:30 | P.PN ---
Progress Note - Text Progress Note Date: 07/30/21 Presenting complaint: Cough short of breath Interval history: 86-year-old patient of Dr. Montalvo. At the baseline able to feed herself. Dementia. Able tonsil simple questions. Normally uses a wheelchair. [facility] Admitted with COVID 19 pneumonitis, possible hypoxia. Acute UTI 07/29/2021: Reclining in bed. Congested cough. Some shortness of breath. Decreased appetite. 07/30/2021: Reclining in a chair. Oral intake much improved. Some cough. Some tiredness. Review of systems: Was done for constitutional, cardiovascular, GI, pulmonary. relevant finding as above Active Medications Acetaminophen (Acetaminophen Tab 325 Mg Tab) 650 mg PO Q4H PRN PRN Reason: Pain or Fever > 100.5 Albuterol Sulfate (Albuterol Hfa Inhaler) 2 puff INHALATION RT-Q6H PRN PRN Reason: Shortness Of Breath Or Wheezing Last Admin: 07/29/21 11:33 Dose: 2 puff Documented by: Apixaban (Apixaban 5 Mg Tab) 10 mg PO BID [facility]; Protocol Last Admin: 07/30/21 08:55 Dose: 10 mg Documented by: Ascorbic Acid (Ascorbic Acid 500 Mg Tab) 500 mg PO BID [facility] Last Admin: 07/30/21 08:55 Dose: 500 mg Documented by: Cholecalciferol (Cholecalciferol 25 Mcg (1000 Iu) Tablet) 25 mcg PO DAILY [facility] Last Admin: 07/30/21 08:55 Dose: 25 mcg Documented by: Dexamethasone Sodium Phosphate (Dexamethasone Sod Phosphate 10 Mg/Ml 1 Ml Vial) 6 mg IV DAILY [facility] Last Admin: 07/30/21 08:56 Dose: 6 mg Documented by: Ceftriaxone Sodium 1 gm/ (Sodium Chloride) 50 mls @ 100 mls/hr IVPB Q24HR [facility] Last Admin: 07/30/21 08:55 Dose: 100 mls/hr Documented by: Insulin Aspart (Insulin Aspart (Novolog) 100 Unit/Ml Vial) 0 unit SQ ACHS [facility]; Protocol Last Admin: 07/30/21 15:05 Dose: Not Given Documented by: Ondansetron HCl (Ondansetron 4 Mg/2 Ml Vial) 4 mg IVP Q8HR PRN PRN Reason: Nausea And Vomiting Senna (Sennosides 8.6 Mg Tab) 8.6 mg PO BID [facility] Last Admin: 07/30/21 08:55 Dose: 8.6 mg Documented by: Zinc Sulfate (Zinc Sulfate 220 Mg Cap) 220 mg PO DAILY [facility] Last Admin: 07/30/21 08:55 Dose: 220 mg Documented by: On examination: VITAL SIGNS: 98.5, 92, 22, 119 with 73, 92%-2 L GENERAL APPEARANCE: Up in a chair, eating, bit tired RESPIRATORY: Respiratory effort increased. PSYCHIATRY: Able to answer simple questions NEUROLOGICAL: No facial asymmetry. Moving all 4 limbs. Rest of exam as per nursing and pulmonary INVESTIGATIONS, reviewed in the clinical context: WBC 3.2 hemoglobin 13.6 platelets 258 d-dimer 0.98 sodium 137 potassium 4.7 creatinine 0.69 albumin 3.0 Influenza type A, type B, RSV: Not detected SARS-CoV-2 [PCR]: Detected CT chest: COPD with multiple pulmonary nodules. Chronic appearing severe compression fracture lower thoracic spine. Suspicion for a distal segment small PE. Assessment and plan: -Acute COVID 19 pneumonitis in a patient who was vaccinated Ventolin when necessary, IV Decadron 6 mg, zinc -Acute hypoxic respiratory failure from COVID 19 pneumonitis Oxygen supplementation-2 L -Major cognitive impairment from late onset Alzheimer's dementia -Chronic medical debility Uses a wheelchair at baseline -Primary osteoarthritis multiple joints bilateral Use pain medications as needed -Mild protein calorie malnutrition from decreased oral intake Add Ensure -Acute asthma exacerbation Ventolin inhaler. po dexamethasone -DVT right lower extremity 1 eliquis -Acute UTI with cystitis. Cultures pending. IV ceftriaxone. Changed to Keflex Change dexamethasone to by mouth. Afebrile, no elevation in white count. Changed to by mouth antibiotic. For UTI
[2021-07-30 16:49] LABS: Glucose,Whole Blood 152 mg/dL (75-99)
[2021-07-30 20:38] LABS: Glucose,Whole Blood 158 mg/dL (75-99)
[2021-07-31 06:35] LABS: Glucose,Whole Blood 89 mg/dL (75-99)
[2021-07-31] MEDS: INSULIN ASPART (NovoLOG) 100 UNIT/ML VIAL SQ SCH ×4 (06:37→20:59)
--- NOTE | 2021-07-31 06:37 | PN ---
PROGRESS NOTE DATE OF SERVICE: 07/30/2021 REASON FOR FOLLOWUP: COVID-19 pneumonia. INTERVAL HISTORY: Patient is afebrile. The patient is breathing more comfortably today. The patient denies having any chest pain. She did have a cough, not bringing up any sputum. No abdominal pain or diarrhea. PHYSICAL EXAMINATION: Blood pressure 134/72 with a pulse of 91. Temp is 97.6. He is 92% on 2 L nasal cannula. Elderly female up in the bed in no distress. Respiratory system: Unlabored breathing, decreased intensity in breath sounds. No wheeze. Heart S1, S2. Regular rate and rhythm. Abdomen soft, no tenderness. LABS: No new labs have been obtained today except the antibiotic came back positive. DIAGNOSTIC IMPRESSION AND PLAN: Patient admitted to the hospital with shortness of breath and cough concerning for Covid 19 infection for which the patient is covered with dexamethasone, zinc, Eliquis and ascorbic acid along with respiratory support and monitor clinical course closely. MMODL / IJN: [id number] /
[2021-07-31] MEDS: dexAMETHasone 2 MG TAB PO SCH (08:43)
[2021-07-31] MEDS: APIXABAN 5 MG TAB PO SCH ×2 (08:43→20:59)
[2021-07-31] MEDS: ASCORBIC ACID 500 MG TAB PO SCH ×2 (08:43→20:59)
[2021-07-31] MEDS: SENNOSIDES 8.6 MG TAB PO SCH ×2 (08:43→20:59)
[2021-07-31] MEDS: CHOLECALCIFEROL 25 MCG (1000 IU) TABLET PO SCH (08:43)
[2021-07-31] MEDS: ZINC SULFATE 220 MG CAP PO SCH (08:43)
[2021-07-31] MEDS: CEPHALEXIN 250 MG CAP PO SCH ×4 (08:47→20:59)
--- NOTE | 2021-07-31 10:40 | P.PN ---
Progress Note - Text Progress Note Date: 07/31/21 Presenting complaint: Cough short of breath Interval history: 86-year-old patient of Dr. Montalvo. At the baseline able to feed herself. Dementia. Able tonsil simple questions. Normally uses a wheelchair. At [facility] Admitted with COVID 19 pneumonitis, possible hypoxia. Acute UTI 07/29/2021: Reclining in bed. Congested cough. Some shortness of breath. Decreased appetite. 07/30/2021: Reclining in a chair. Oral intake much improved. Some cough. Some tiredness. 07/31/2021: Laying in bed. Slight cough. Nasal cannula 1 L. Oral intake variable. Review of systems: Was done for constitutional, cardiovascular, GI, pulmonary. relevant finding as above Active Medications Acetaminophen (Acetaminophen Tab 325 Mg Tab) 650 mg PO Q4H PRN PRN Reason: Pain or Fever > 100.5 Albuterol Sulfate (Albuterol Hfa Inhaler) 2 puff INHALATION RT-Q6H PRN PRN Reason: Shortness Of Breath Or Wheezing Last Admin: 07/29/21 11:33 Dose: 2 puff Documented by: Apixaban (Apixaban 5 Mg Tab) 10 mg PO BID [facility]; Protocol Last Admin: 07/31/21 08:43 Dose: 10 mg Documented by: Ascorbic Acid (Ascorbic Acid 500 Mg Tab) 500 mg PO BID [facility] Last Admin: 07/31/21 08:43 Dose: 500 mg Documented by: Cephalexin (Cephalexin 250 Mg Cap) 250 mg PO QID [facility] Last Admin: 07/31/21 08:47 Dose: 250 mg Documented by: Cholecalciferol (Cholecalciferol 25 Mcg (1000 Iu) Tablet) 25 mcg PO DAILY [facility] Last Admin: 07/31/21 08:43 Dose: 25 mcg Documented by: Dexamethasone (Dexamethasone 2 Mg Tab) 6 mg PO DAILY [facility] Last Admin: 07/31/21 08:43 Dose: 6 mg Documented by: Insulin Aspart (Insulin Aspart (Novolog) 100 Unit/Ml Vial) 0 unit SQ [facility]; Protocol Last Admin: 07/31/21 06:37 Dose: Not Given Documented by: Ondansetron HCl (Ondansetron 4 Mg/2 Ml Vial) 4 mg IVP Q8HR PRN PRN Reason: Nausea And Vomiting Senna (Sennosides 8.6 Mg Tab) 8.6 mg PO BID [facility] Last Admin: 07/31/21 08:43 Dose: 8.6 mg Documented by: Zinc Sulfate (Zinc Sulfate 220 Mg Cap) 220 mg PO DAILY [facility] Last Admin: 07/31/21 08:43 Dose: 220 mg Documented by: On examination: VITAL SIGNS: 98.1, 83, 16, 141, 79, 93% on room air GENERAL APPEARANCE: Laying in bed, awake RESPIRATORY: Respiratory effort increased. PSYCHIATRY: Able to answer simple questions NEUROLOGICAL: No facial asymmetry. Moving all 4 limbs. Rest of exam as per nursing and pulmonary INVESTIGATIONS, reviewed in the clinical context: WBC 3.2 hemoglobin 13.6 platelets 258 d-dimer 0.98 sodium 137 potassium 4.7 creatinine 0.69 albumin 3.0 Influenza type A, type B, RSV: Not detected SARS-CoV-2 [PCR]: Detected CT chest: COPD with multiple pulmonary nodules. Chronic appearing severe compression fracture lower thoracic spine. Suspicion for a distal segment small PE. Assessment and plan: -Acute COVID 19 pneumonitis in a patient who was vaccinated Ventolin when necessary, Decadron 6 mg, zinc -Acute hypoxic respiratory failure from COVID 19 pneumonitis Oxygen supplementation-1 L -Major cognitive impairment from late onset Alzheimer's dementia -Chronic medical debility Uses a wheelchair at baseline -Primary osteoarthritis multiple joints bilateral Use pain medications as needed -Mild protein calorie malnutrition from decreased oral intake Add Ensure -Acute asthma exacerbation Ventolin inhaler. po dexamethasone -DVT right lower extremity 1 eliquis -Acute UTI with cystitis. Cultures pending. IV ceftriaxone. Changed to Keflex Continue current medication treatment plan. Hoping for patient to be discharged tomorrow.
--- NOTE | 2021-07-31 11:17 | P.PN ---
Subjective Progress Note Date: 07/31/21 Principal diagnosis: COVID-19 infection This is an 86-year-old female patient who follows with Dr. Montalvo as her primary care provider. She resides in a local extended care facility and was found to be CoVID positive yesterday. She has been fully vaccinated. Not normally on oxygen. She was brought in due to her positive testing concerns regarding worsening infection. She does have chronic dementia is a poor historian. Chest is a history of asthma, anemia, left heel pressure ulcer, recent hip surgery. Her recent DVT. Anticoagulated with Eliquis Chest x-ray reveals evidence of COPD with some chronic interstitial lung disease possible. 8 mm right upper lobe pulmonary nodule. CT angiogram reveals a distal subsegmental suspicious small PE. There is evidence of COPD with multiple pulmonary nodules. Chronic-appearing severe compression fraction of the lower thoracic spine. X-ray of the left heel reveals soft tissue swelling and subcutaneous ulceration adjacent to the calcaneus no evidence of osteomyelitis. White count 3.2. Hemoglobin 13.6. Lymphocytes 0.8. D-dimer 0.98. Sodium 137. Potassium 4.7. Creatinine 0.69. Glucose 139. COVID-19 screen by PCR positive. Influenza screen negative. She's been initiated on ceftriaxone. Anticoagulated with Eliquis. The patient is seen today 07/30/2021 in follow-up. She is currently sitting up in a chair at the bedside. Awake and alert in no acute distress. Disoriented to place and time. She is maintaining O2 saturations in the 90s on 2 L/m per nasal cannula. Room air oxygenation 88%. She's afebrile. Hemodynamically stable. Glucose 105. She remains anticoagulated with Eliquis. Remains on IV Decadron. Vitamin supplements. Bronchodilators. The patient is seen today 07/31/2021 in follow-up on the selective care unit. She is currently resting comfortably in bed. Awake and alert. Disoriented to place and time. She is maintaining O2 saturations in the low 90s on room air. She's afebrile. Hemodynamically stable. Blood cultures revealed no growth. Urine culture revealed no growth. Blood glucose 89. She remains on Decadron, I'll Eliquis, vitamin supplements. Keflex for left ankle wound. Cultures revealed no growth thus far. Objective - Vital Signs Vital signs: Vital Signs Temp 98.1 F 07/31/21 08:00 Pulse 83 07/31/21 08:00 Resp 16 07/31/21 08:00 BP 141/79 07/31/21 08:00 Pulse Ox 93 L 07/31/21 08:00 Intake & Output 07/30/21 07/31/21 07/31/21 18:59 06:59 18:59 Intake Total 1080 140 Output Total 1400 600 Balance -320 -600 140 Weight 70 kg Intake: Oral 1080 140 Output: Urine 1400 600 Other: Voiding Method Indwelling Catheter Indwelling Catheter Indwelling Catheter # Voids 0 # Bowel Movements 0 - Exam GENERAL EXAM: Alert, pleasant 86-year-old female patient, resting in bed, on room air, comfortable in no apparent distress. HEAD: Normocephalic. EYES: Normal reaction of pupils, equal size. NOSE: Clear with pink turbinates. THROAT: No erythema or exudates. NECK: No masses, no JVD. CHEST: No chest wall deformity. LUNGS: Equal air entry with faint crackles in the posterior bases. CVS: S1 and S2 normal with no audible murmur, regular rhythm. ABDOMEN: No hepatosplenomegaly, normal bowel sounds, no guarding or rigidity. SPINE: No scoliosis or deformity SKIN: No rashes CENTRAL NERVOUS SYSTEM: No focal deficits, tone is normal in all 4 extremities. EXTREMITIES: There is no peripheral edema. No clubbing, no cyanosis. Peripheral pulses are intact. - Labs CBC & Chem 7: 07/29/21 07:22 07/29/21 07:22 Labs: Abnormal Lab Results - Last 24 Hours (Table) 07/29/21 07/30/21 07/30/21 Range/Units 07:22 06:58 11:58 POC Glucose (mg/dL) 126 H (75-99) mg/dL Procalcitonin 0.16 H (0.02-0.09) ng/mL SARS-CoV-2 Ab,Total Positive A (Negative) 07/30/21 07/30/21 Range/Units 16:42 20:36 POC Glucose (mg/dL) 152 H 158 H (75-99) mg/dL Procalcitonin (0.02-0.09) ng/mL SARS-CoV-2 Ab,Total (Negative) Microbiology - Last 24 Hours (Table) 07/28/21 20:59 Gram Stain - Final Ankle - Left Wound Culture - Final 07/29/21 07:22 Blood Culture - Preliminary Blood No Growth after 48 hours 07/28/21 15:31 Urine Culture - Final Urine,Clean Catch 07/28/21 19:25 Blood Culture - Preliminary Blood No Growth after 48 hours 07/28/21 19:18 Blood Culture - Preliminary Blood No Growth after 48 hours Assessment and Plan Assessment: 1 Acute hypoxemic respiratory failure secondary to acute COVID-19 pneumonia the patient apparently is fully vaccinated. Resides in an [facility]. 2 Recent history of DVT, on Eliquis in the outpatient setting. Possible small PE on CTA 3 Left heel ulcer on Rocephin 4 Dementia, very poor historian 5 History of recent hip surgery 6 Asthma 7 History of anemia Plan: The patient was seen and evaluated by Dr. Denae Lechuga for discharge from the pulmonary standpoint Completed 10 day course of Decadron, vitamin supplements Continue Eliquis Plan is to live with her sister in [facility] I, the cosigning physician, performed a history & physical examination of the patient. Lungs sounds with bibasilar crackles. Maintaining good O2 saturations in the 90s on room air. I discussed the assessment and plan of care with my guilherme barron practitioner, Gabi Coronel. I attest to the above note as dictated by her.
[2021-07-31 11:36] LABS: Glucose,Whole Blood 97 mg/dL (75-99)
[2021-07-31 11:49] VITALS: BMI 20.9
[2021-07-31 16:41] LABS: Glucose,Whole Blood 111 mg/dL (75-99)
[2021-07-31 20:05] LABS: Glucose,Whole Blood 111 mg/dL (75-99)
[2021-08-01 06:01] LABS: Glucose,Whole Blood 95 mg/dL (75-99)
[2021-08-01] MEDS: INSULIN ASPART (NovoLOG) 100 UNIT/ML VIAL SQ SCH (06:44)
[2021-08-01] MEDS: dexAMETHasone 2 MG TAB PO SCH (09:36)
[2021-08-01] MEDS: SENNOSIDES 8.6 MG TAB PO SCH (09:36)
[2021-08-01] MEDS: CHOLECALCIFEROL 25 MCG (1000 IU) TABLET PO SCH (09:36)
[2021-08-01] MEDS: ZINC SULFATE 220 MG CAP PO SCH (09:36)
[2021-08-01] MEDS: APIXABAN 5 MG TAB PO SCH (09:37)
[2021-08-01] MEDS: CEPHALEXIN 250 MG CAP PO SCH (09:37)
[2021-08-01] MEDS: ASCORBIC ACID 500 MG TAB PO SCH (09:37)
[2021-08-01 10:40] VITALS: BP 131/71; PULSE 73; RESP 16; TEMP 98
--- NOTE | 2021-08-01 11:06 | P.PN ---
Subjective Progress Note Date: 08/01/21 Principal diagnosis: COVID-19 infection This is an 86-year-old female patient who follows with Dr. Montalvo as her primary care provider. She resides in a local extended care facility and was found to be CoVID positive yesterday. She has been fully vaccinated. Not normally on oxygen. She was brought in due to her positive testing concerns regarding worsening infection. She does have chronic dementia is a poor historian. Chest is a history of asthma, anemia, left heel pressure ulcer, recent hip surgery. Her recent DVT. Anticoagulated with Eliquis Chest x-ray reveals evidence of COPD with some chronic interstitial lung disease possible. 8 mm right upper lobe pulmonary nodule. CT angiogram reveals a distal subsegmental suspicious small PE. There is evidence of COPD with multiple pulmonary nodules. Chronic-appearing severe compression fraction of the lower thoracic spine. X-ray of the left heel reveals soft tissue swelling and subcutaneous ulceration adjacent to the calcaneus no evidence of osteomyelitis. White count 3.2. Hemoglobin 13.6. Lymphocytes 0.8. D-dimer 0.98. Sodium 137. Potassium 4.7. Creatinine 0.69. Glucose 139. COVID-19 screen by PCR positive. Influenza screen negative. She's been initiated on ceftriaxone. Anticoagulated with Eliquis. The patient is seen today 07/30/2021 in follow-up. She is currently sitting up in a chair at the bedside. Awake and alert in no acute distress. Disoriented to place and time. She is maintaining O2 saturations in the 90s on 2 L/m per nasal cannula. Room air oxygenation 88%. She's afebrile. Hemodynamically stable. Glucose 105. She remains anticoagulated with Eliquis. Remains on IV Decadron. Vitamin supplements. Bronchodilators. The patient is seen today 07/31/2021 in follow-up on the selective care unit. She is currently resting comfortably in bed. Awake and alert. Disoriented to place and time. She is maintaining O2 saturations in the low 90s on room air. She's afebrile. Hemodynamically stable. Blood cultures revealed no growth. Urine culture revealed no growth. Blood glucose 89. She remains on Decadron, I'll Eliquis, vitamin supplements. Keflex for left ankle wound. Cultures revealed no growth thus far. The patient is seen today 08/01/2021 in follow-up on the selective care unit. Awake and alert. Sitting up having breakfast. Disoriented to time and place. She is maintaining good O2 saturations in the 90s on room air. Afebrile. Hemodynamically stable. Blood, urine, left ankle cultures all revealed no growth. Remains on Keflex. Continued on Eliquis, Decadron, vitamin supplements. Objective - Vital Signs Vital signs: Vital Signs Temp 98 F 08/01/21 08:00 Pulse 73 08/01/21 08:00 Resp 16 08/01/21 08:00 BP 131/71 08/01/21 08:00 Pulse Ox 91 L 08/01/21 08:00 Intake & Output 07/31/21 08/01/21 08/01/21 18:59 06:59 18:59 Intake Total 480 Output Total 350 1100 Balance 130 -1100 Weight 70 kg 65.5 kg Intake: Intake, IV Titration 100 Amount cefTRIAXone 1 gm In 100 Sodium Chloride 0.9% 50 ml @ 100 mls/hr IVPB Q24HR [facility] Rx#:[id number] Oral 380 Output: Urine 350 1100 Other: Voiding Method Indwelling Catheter Indwelling Catheter Indwelling Catheter - Exam GENERAL EXAM: Alert, pleasant 86-year-old female patient, resting in bed, on room air, comfortable in no apparent distress. HEAD: Normocephalic. EYES: Normal reaction of pupils, equal size. NOSE: Clear with pink turbinates. THROAT: No erythema or exudates. NECK: No masses, no JVD. CHEST: No chest wall deformity. LUNGS: Equal air entry with faint crackles in the posterior bases. CVS: S1 and S2 normal with no audible murmur, regular rhythm. ABDOMEN: No hepatosplenomegaly, normal bowel sounds, no guarding or rigidity. SPINE: No scoliosis or deformity SKIN: No rashes CENTRAL NERVOUS SYSTEM: No focal deficits, tone is normal in all 4 extremities. EXTREMITIES: There is no peripheral edema. No clubbing, no cyanosis. Peripheral pulses are intact. - Labs CBC & Chem 7: 07/29/21 07:22 07/29/21 07:22 Labs: Abnormal Lab Results - Last 24 Hours (Table) 07/31/21 07/31/21 Range/Units 16:39 20:03 POC Glucose (mg/dL) 111 H 111 H (75-99) mg/dL Microbiology - Last 24 Hours (Table) 07/29/21 07:22 Blood Culture - Preliminary Blood No Growth after 72 hours 07/28/21 19:25 Blood Culture - Preliminary Blood No Growth after 72 hours 07/28/21 19:18 Blood Culture - Preliminary Blood No Growth after 72 hours 07/28/21 20:59 Gram Stain - Final Ankle - Left Wound Culture - Final Assessment and Plan Assessment: 1 Acute hypoxemic respiratory failure secondary to acute COVID-19 pneumonia the patient apparently is fully vaccinated. Resides in an [facility]. 2 Recent history of DVT, on Eliquis in the outpatient setting. Possible small PE on CTA 3 Left heel ulcer on Rocephin 4 Dementia, very poor historian 5 History of recent hip surgery 6 Asthma 7 History of anemia Plan: The patient was seen and evaluated by Dr. Denae Lechuga for discharge from the pulmonary standpoint Complete a 10 day course of Decadron, vitamin supplements, Eliquis Plan is to live with her sister in [facility] We will see as needed I, the cosigning physician, performed a history & physical examination of the patient. Lungs sounds with bibasilar crackles. Maintaining good O2 saturations in the 90s on room air. I discussed the assessment and plan of care with my nurse practitioner, Gabi Coronel. I attest to the above note as dictated by her.
--- NOTE | 2021-08-01 17:18 | P.DS ---
Providers Date of admission: 07/28/21 22:43 Expected date of discharge: 08/01/21 Attending physician: Jan Padilla Consults: 07/28/21 22:55 Consult Physician Routine Consulting Provider: Fabián Philippe Consult Reason/Comments: COVID 19 pneumonia, pulmonary nodules, Possible sub- segmental PE Do you want consulting provider notified?: Yes Consult Physician Routine Consulting Provider: Romero Arroyo Consult Reason/Comments: Covid 19 Pneumonia Do you want consulting provider notified?: Yes [facility]: Presenting complaint: Cough short of breath Interval history: 86-year-old patient of Dr. Montalvo. At the baseline able to feed herself. Dementia. Able tonsil simple questions. Normally uses a wheelchair. At [facility] Admitted with COVID 19 pneumonitis, possible hypoxia. Acute UTI Patient is put on dexamethasone. IV ceftriaxone. Bronchodilators. Appetite slowly started improving. Rightfully so patient did not like hospital food. Seen best be started at this. 08/01/2021: Overall feeling much better. Minimal wheezing or cough. Oral intake improving. Patient is being discharged to home with support. Discussion and discharge planning more than 35 minutes Supervisor Stitching Department: Dr. Philippe from pulmonary Dr. Arroyo from [place] On examination: VITAL SIGNS: 97.9, 80, 17, 1 38 x 76, 95% room air GENERAL APPEARANCE: Sitting up, eating RESPIRATORY: Respiratory effort increased. PSYCHIATRY: Able to answer simple questions NEUROLOGICAL: No facial asymmetry. Moving all 4 limbs. Rest of exam as per nursing and pulmonary INVESTIGATIONS, reviewed in the clinical context: WBC 3.2 hemoglobin 13.6 platelets 258 d-dimer 0.98 sodium 137 potassium 4.7 creatinine 0.69 albumin 3.0 Influenza type A, type B, RSV: Not detected SARS-CoV-2 [PCR]: Detected CT chest: COPD with multiple pulmonary nodules. Chronic appearing severe compression fracture lower thoracic spine. Suspicion for a distal segment small PE. Assessment and plan: -Acute COVID 19 pneumonitis in a patient who was vaccinated: Clinically improved Ventolin when necessary, Decadron 6 mg, zinc. Decadron discontinued -Acute hypoxic respiratory failure from COVID 19 pneumonitis, improving Oxygen supplementation-1 L -Major cognitive impairment from late onset Alzheimer's dementia -Chronic medical debility Uses a wheelchair at baseline -Primary osteoarthritis multiple joints bilateral Use pain medications as needed -Mild protein calorie malnutrition from decreased oral intake Add Ensure -Acute asthma exacerbation Ventolin inhaler. -DVT right lower extremity Continue eliquis -Acute UTI with cystitis. Cultures pending. IV ceftriaxone. 2 more days of oral Keflex Disposition: Home with home care Plan - Discharge Summary New Discharge Prescriptions: New Zinc Sulfate [Orazinc] 220 mg PO DAILY #30 cap Ascorbic Acid [Vitamin C] 500 mg PO BID #60 tab Cephalexin [Keflex] 250 mg PO QID #8 cap Cholecalciferol [Vitamin D3 (25 Mcg = 1000 Iu)] 25 mcg PO DAILY #100 tablet Continue Albuterol Sulfate [Ventolin HFA] 2 puff INHALATION RT-Q8H PRN PRN Reason: Shortness Of Breath Sennosides [Senna] 8.6 mg PO BID Albuterol Nebulized [Ventolin Nebulized] 2.5 mg INHALATION RT-Q4H PRN PRN Reason: Shortness Of Breath Apixaban [Eliquis] 10 mg PO BID Acetaminophen [Tylenol] 650 mg PO Q4H PRN PRN Reason: Pain Or Fever > 100.5 Discharge Medication List Acetaminophen [Tylenol] 650 mg PO Q4H PRN 07/28/21 [History] Albuterol Nebulized [Ventolin Nebulized] 2.5 mg INHALATION RT-Q4H PRN 07/28/21 [History] Albuterol Sulfate [Ventolin HFA] 2 puff INHALATION RT-Q8H PRN 07/28/21 [History] Apixaban [Eliquis] 10 mg PO BID 07/28/21 [History] Sennosides [Senna] 8.6 mg PO BID 07/28/21 [History] Ascorbic Acid [Vitamin C] 500 mg PO BID #60 tab 08/01/21 [Rx] Cephalexin [Keflex] 250 mg PO QID #8 cap 08/01/21 [Rx] Cholecalciferol [Vitamin D3 (25 Mcg = 1000 Iu)] 25 mcg PO DAILY #100 tablet 08/01/21 [Rx] Zinc Sulfate [Orazinc] 220 mg PO DAILY #30 cap 08/01/21 [Rx] Follow up Appointment(s)/Referral(s): Jose Montalvo DO [Primary Care Provider] - 1-2 days Patient Instructions/Handouts: Coronavirus Disease 2019 (COVID-19) Discharge Disposition: HOME SELF-CARE
== END 2021-08-01 11:55 | disposition home or self-care (01) | DRG 177 ==
LOC: EC 17:49 → 3SCARD 22:43
PROVIDERS: ADMIT Hospitalist; ATTEND Hospitalist
DX: U07.1 COVID-19 (principal); J12.82 Pneumonia due to coronavirus disease 2019; I26.93 Single subsegmental thrombotic pulmonary embolism without acute cor pulmonale; J96.01 Acute respiratory failure with hypoxia; J44.0 Chronic obstructive pulmonary disease with (acute) lower respiratory infection; I82.401 Acute embolism and thrombosis of unspecified deep veins of right lower extremity; E87.1 Hypo-osmolality and hyponatremia; E44.1 Mild protein-calorie malnutrition; J45.901 Unspecified asthma with (acute) exacerbation; J84.9 Interstitial pulmonary disease, unspecified; M19.91 Primary osteoarthritis, unspecified site; Z96.649 Presence of unspecified artificial hip joint; Z86.718 Personal history of other venous thrombosis and embolism; Z79.01 Long term (current) use of anticoagulants; G30.1 Alzheimer's disease with late onset; F02.80 Dementia in other diseases classified elsewhere, unspecified severity, without behavioral disturbance, psychotic disturbance, mood disturbance, and anxiety; L89.629 Pressure ulcer of left heel, unspecified stage; N30.90 Cystitis, unspecified without hematuria; K59.00 Constipation, unspecified; R91.1 Solitary pulmonary nodule; R53.81 Other malaise; Z79.899 Other long term (current) drug therapy; D64.9 Anemia, unspecified
CPT/HCPCS: 36415; 71045; 71275; 80053; 81001; 82728; 83605; 83615; 83735; 84145; 84484; 85025; 85379; 85610; 85730; 86140; 86769; 87040; 87070; 87075; 87086; 87205; 87636; 93005; 94640; 94760; 96374; 96375; 99285